=== PATIENT | male | born 1970 | race African-American/Black ===

== ENCOUNTER 2023-06-24 06:46 | Emergency (ER) | payer MEDICAID ==
[2023-06-24 07:50] LABS: BASOPHILS # (AUTO) 0.1 10^3/uL (0.0-0.1); BASOPHILS % (AUTO) 0.8 %; EOSINOPHILS % (AUTO) 0.3 %; HCT - HEMATOCRIT 42.3 % (42.0-52.0); HGB - HEMOGLOBIN 13.7 g/dL (14.0-18.0); LYMPHOCYTES # (AUTO) 1.5 10^3/uL (1.5-3.5); LYMPHOCYTES % (AUTO) 18.6 %; MEAN CORPUSCULAR HEMOGLOBIN 27.7 pg (27.0-31.0); MEAN CORPUSCULAR HGB CONC 32.4 g/dL (32.0-36.0); MEAN CORPUSCULAR VOLUME 85.6 fL (80.0-94.0); MEAN PLATELET VOLUME 9.8 fL (7.4-11.4); MONOCYTES # (AUTO) 0.7 10^3/uL (0.0-1.0); MONOCYTES % (AUTO) 8.8 %; NEUTROPHILS # (AUTO) 5.6 10^3/uL (1.5-6.6); NEUTROPHILS % (AUTO) 71.4 %; PLT - PLATELET COUNT 317 10^3/uL (130-450); RED BLOOD COUNT 4.94 10^6/uL (4.70-6.10); RED CELL DISTRIBUTION WIDTH 12.1 % (12.0-15.0); WHITE BLOOD COUNT 7.8 x10^3/uL (4.8-10.8)
--- NOTE | 2023-06-24 07:58 | XRAY Report ---
PROCEDURE: Chest 1 View X-Ray INDICATIONS: CP TECHNIQUE: One view of the chest was acquired. COMPARISON: None. FINDINGS: Surgical changes and devices: None. Lungs and pleura: No pleural effusions or pneumothorax. Lungs are clear. Mediastinum: Mediastinal contours appear normal. Heart size is normal. Bones and chest wall: No suspicious bony lesions. Overlying soft tissues appear unremarkable. IMPRESSION: No acute cardiopulmonary process. Reviewed by: Marta Mata MD on 06/24/2023 7:56 AM [facility] Approved by: Marta Mata MD on 06/24/2023 7:56 AM [facility] Station ID: [id number]
[2023-06-24] MEDS ORDERED: SODIUM CHLORIDE 0.9% 1,000 ML IV STA (08:05)
[2023-06-24 08:15] LABS: ALBUMIN 4.6 g/dL (3.2-5.5); ALBUMIN/GLOBULIN RATIO 1.5 (1.0-2.2); BILIRUBIN,TOTAL 0.8 mg/dL (0.2-1.0); CALCIUM 9.8 mg/dL (8.5-10.3); CREATININE 0.9 mg/dL (0.6-1.3); POTASSIUM 3.5 mmol/L (3.5-4.5); TOTAL PROTEIN 7.6 g/dL (6.4-8.9)
[2023-06-24 08:24] LABS: TROPONIN I HIGH SENSITIVITY 24.5 ng/L (2.3-19.7)
--- NOTE | 2023-06-24 08:25 | ED Physician Documentation ---
PD HPI CHEST PAIN - Stated complaint Stated Complaint: SOA/HIGH BP - Chief complaint Chief Complaint: Cardiac - History obtained from History obtained from: Patient - Additional information Additional information: Patient is a 53-year-old male with a history of schizophrenia, hypertension, hyperlipidemia presenting for evaluation of an episode of chest pain starting approximately 1 hour ago while he was sitting with associated diaphoresis and shortness of air. Patient reports that he has been "partying" recently and last night used cocaine, methamphetamine, cannabis, alcohol. He states he has not had any illicit substances since 4 to 6 hours prior to the onset of his chest pain. He states that he is supposed to be on psychiatric medications but is unsure of the names and has not been taking them for 2 weeks. He denies being suicidal. He states he feels he needs detox from his recent substance use. He is in the area for work. He does have his other medication such as amlodipine but has not taken it in a few days. Denies history of MD. He is unsure of the psychiatric medications he is supposed to be taking. States he has never been in detox or rehab before but feels that it would be helpful for him to go to. Denies having DTs when stopping alcohol in the past. States he has been drinking heavily for the past 4 days. Review of Systems Constitutional: denies: Fever Cardiac: reports: Chest pain / pressure Respiratory: reports: Dyspnea GI: denies: Abdominal Pain, Vomiting Neurologic: denies: Headache PD PAST MEDICAL HISTORY - Past Medical History Past Medical History: Yes Cardiovascular: Hypertension, High cholesterol - Past Surgical History Past Surgical History: No - Allergies Allergies/Adverse Reactions: Allergies Allergy/AdvReac Type Severity Reaction Status Date / Time No Known Drug Allergies Allergy Verified 06/24/23 07:27 - Social History Does the pt smoke?: Yes Smoking Status: Current every day smoker Does the pt drink ETOH?: Yes Substance Use and Type: Cocaine/Crack PD ED PE NORMAL - General General: Alert and oriented X 3, No acute distress, Well developed/nourished - HEENT HEENT: Atraumatic, Moist mucous membranes, Pharynx benign - Neck Neck: Supple, no meningeal sign - Cardiac Cardiac: Other (Tachycardic; Regular rhythm) - Respiratory Respiratory: No respiratory distress, Clear bilaterally - Abdomen Abdomen: Soft, Non tender - Derm Derm: Warm and dry - Extremities Extremities: No edema - Neuro Neuro: Normal speech Results - Vitals Vitals: Vital Signs - 24 hr 06/24/23 06/24/23 06/24/23 07:23 08:01 08:35 Temperature 36.5 C Heart Rate 123 H 104 H 96 Respiratory 20 20 18 Rate Blood Pressure 164/110 H 154/96 H 121/107 H O2 Saturation 97 100 97 06/24/23 06/24/23 06/24/23 09:58 10:00 10:38 Temperature Heart Rate 109 H 93 106 H Respiratory 20 20 22 Rate Blood Pressure 196/107 H 177/109 H 187/142 H O2 Saturation 97 95 96 06/24/23 06/24/23 11:09 11:53 Temperature Heart Rate 109 H 108 H Respiratory 18 16 Rate Blood Pressure 157/107 H 125/82 H O2 Saturation 96 99 Oxygen O2 Source Room air - EKG (time done) 0720 EKG releavant findings:: EKG personally interpreted by author of this note. Relevant findings are: Rate 113, sinus tachycardia, no STEMI, no prior for comparison - Labs Labs: Laboratory Tests 06/24/23 06/24/23 06/24/23 07:41 07:41 07:41 WBC 7.8 RBC 4.94 Hgb 13.7 L Hct 42.3 MCV 85.6 MCH 27.7 MCHC 32.4 RDW 12.1 Plt Count 317 MPV 9.8 Neut # (Auto) 5.6 Lymph # (Auto) 1.5 [place] # (Auto) 0.7 Eos # (Auto) 0.0 Baso # (Auto) 0.1 Absolute Nucleated RBC 0.00 Nucleated RBC % 0.0 D-Dimer 333.0 H Sodium 136 Potassium 3.5 Chloride 99 L Carbon Dioxide 27 Anion Gap 10.0 BUN 15 Creatinine 0.9 Estimated GFR (MDRD) 106 Glucose 112 H Calcium 9.8 Total Bilirubin 0.8 AST 64 H ALT 30 Alkaline Phosphatase 54 Troponin I High Sens 24.5 H* Total Protein 7.6 Albumin 4.6 Globulin 3.0 Albumin/Globulin Ratio 1.5 Lipase 10 L Ethyl Alcohol 06/24/23 06/24/23 07:41 09:38 WBC RBC Hgb Hct MCV MCH MCHC RDW Plt Count MPV Neut # (Auto) Lymph # (Auto) [place] # (Auto) Eos # (Auto) Baso # (Auto) Absolute Nucleated RBC Nucleated RBC % D-Dimer Sodium Potassium Chloride Carbon Dioxide Anion Gap BUN Creatinine Estimated GFR (MDRD) Glucose Calcium Total Bilirubin AST ALT Alkaline Phosphatase Troponin I High Sens 22.9 H* Total Protein Albumin Globulin Albumin/Globulin Ratio Lipase Ethyl Alcohol < 10.0 PD Medical Decision Making - ED course Complexity details: reviewed results, re-evaluated patient, d/w patient ED course: Patient is a 53-year-old male presenting for evaluation of chest pain and feeling short of air this morning in the setting of recent polysubstance abuse. Patient admits to using cocaine, methamphetamine, cannabis and alcohol last night. EKG is reviewed and nonischemic. CBC, chemistry, troponin and D-dimer were obtained and reviewed.Chest x-ray reviewed without signs of effusion or consolidation. D-dimer is elevated even with age adjustment so a CT angio was obtained which I reviewed. No pulmonary embolism but there are nodules which need monitoring which I reviewed with the patient. Repeat troponin is slightly decreased and thus I do not feel this represents acute coronary syndrome. Patient is feeling better here. He was seen by social work. Patient was given resources regarding his substance abuse. He is not suicidal or appearing acutely psychotic. Patient counseled on need for close follow-up as well as concerning symptoms to return for. 0958 - Reviewed CT results including findings of incidental nodules. Patient does smoke 2 packs a day. I explained that he needs close follow-up given his smoking history to ensure that these do not turn into cancer. Patient indicates understanding that he needs follow-up for his CT scan. Departure - Departure Disposition: 01 Home, Self Care Clinical Impression: Chest pain, Pulmonary nodule, Polysubstance abuse Condition: Stable Instructions: ED Chest Pain Atypical Unkn Cause, ED Drug Abuse General Comments: Please follow-up with your primary care provider regarding your chest pain today. I would also recommend you resume your medications as prescribed and make sure you are taking them every day. At the social welfare research worker is also given you resources regarding Your substance abuse. Please reach out to get help. [facility] [address] [place] [address] Main The [facility] offers a monitored and safe setting for individuals withdrawing from alcohol and drugs, and counseling for individuals experiencing a mental health crisis. All services are provided in a 10-bed facility where intensive medical monitoring is required along with stabilization services. The goal of these services is to assess a clients mental health and substance use disorder related needs, and assist them in accessing the services they need to recover. YOU NEED CLOSE FOLLOW UP FOR THE FOLLOWING TO MAKE SURE THESE NODULES DO NOT TURN INTO CANCER APPEARING LESIONS. Multiple scattered sub-6 mm solid pulmonary nodules. If patient is high risk for lung malignancy, recommend follow-up CT in 12 months to demonstrate stability. If patient is low risk for lung malignancy, no imaging follow-up is recommended per Fleischner guidelines. Forms: PCP List Discharge Date/Time: 06/24/23 12:29
[2023-06-24] MEDS ORDERED: iohexoL-300 100 ML VIAL IVP ONE (09:23)
--- NOTE | 2023-06-24 09:49 | CT Report ---
PROCEDURE: ANGIO CHEST W/WO INDICATIONS: CP/SOA/abnormal ddimer CONTRAST: 80ml Omni 300 TECHNIQUE: After the administration of intravenous contrast, 2 mm axial images were acquired from the pulmonary apices to the posterior costophrenic angles during the arterial phase. In addition, 1 mm lung kernel and 5 mm soft tissue kernel reconstructions were performed. 3-dimensional coronal oblique maximum int ensity projection (MIP) reformats, 8 mm axial MIP, and 5 mm coronal and sagittal MPR reformats were t hen performed through the thorax. For radiation dose reduction, the following was used: automated exp osure control, adjustment of mA and/or kV according to patient size. COMPARISON: Chest radiograph 06/24/2023 FINDINGS: Image quality: Diagnostic. Large vessels: No filling defects within the opacified pulmonary arteries, accounting for motion and contrast timing. No evidence of acute aortic syndrome or aortic aneurysm. Lungs and pleura: Bibasilar atelectasis. No pleural effusions. No pneumothorax. Scattered solid pulm onary nodules as follows: -Right upper lobe subpleural 3 mm nodule (4/116, MIP image 60) -Right lower lobe 3 mm subpleural solid pulmonary nodule (4/161, MIP image 83), possible subfissural lymph node. -Right lower lobe 5 mm subpleural solid pulmonary nodule (4/186, MIP image 94) Mediastinum: Heart size is mildly enlarged. No pericardial effusion. Coronary artery calcifications. No large vessel abnormality. No mediastinal adenopathy by size criteria. Chest wall and lower neck: Thyroid is unremarkable. No axillary or supraclavicular adenopathy by size . Bones: No acute or suspicious osseous abnormality. Mild degenerative changes of the visualized spine. Upper Abdomen: Unremarkable. IMPRESSION: No acute pulmonary embolus. Multiple scattered sub-6 mm solid pulmonary nodules. If patient is high risk for lung malignancy, rec ommend follow-up CT in 12 months to demonstrate stability. If patient is low risk for lung malignancy , no imaging follow-up is recommended per Fleischner guidelines. Reviewed by: Bell Conrad MD on 06/24/2023 9:47 AM PST Approved by: Bell Conrad MD on 06/24/2023 9:47 AM PST Station ID: [id number]
[2023-06-24 11:59] VITALS: BP 125/82; O2SAT 99
== END 2023-06-24 12:29 | disposition home or self-care (01) ==
LOC: ED 06:46
DX: R07.9 Chest pain, unspecified (principal); R06.02 Shortness of breath; F19.10 Other psychoactive substance abuse, uncomplicated; F10.10 Alcohol abuse, uncomplicated; Y90.0 Blood alcohol level of less than 20 mg/100 ml; R79.1 Abnormal coagulation profile; R79.89 Other specified abnormal findings of blood chemistry; R91.8 Other nonspecific abnormal finding of lung field; F17.200 Nicotine dependence, unspecified, uncomplicated; Z91.148 Patient's other noncompliance with medication regimen for other reason
CPT/HCPCS: 36415; 80053; 80320; 83690; 84484; 85025; 85379; 93005; 99283; 99284

== ENCOUNTER 2023-06-24 20:10 | Emergency (ER) | payer MEDICAID ==
[2023-06-24 20:55] LABS: BASOPHILS # (AUTO) 0.1 10^3/uL (0.0-0.1); BASOPHILS % (AUTO) 0.5 %; EOSINOPHILS % (AUTO) 0.3 %; HCT - HEMATOCRIT 42.2 % (42.0-52.0); HGB - HEMOGLOBIN 13.7 g/dL (14.0-18.0); LYMPHOCYTES # (AUTO) 2.1 10^3/uL (1.5-3.5); LYMPHOCYTES % (AUTO) 21.2 %; MEAN CORPUSCULAR HEMOGLOBIN 27.6 pg (27.0-31.0); MEAN CORPUSCULAR HGB CONC 32.5 g/dL (32.0-36.0); MEAN CORPUSCULAR VOLUME 85.1 fL (80.0-94.0); MEAN PLATELET VOLUME 9.6 fL (7.4-11.4); MONOCYTES # (AUTO) 0.8 10^3/uL (0.0-1.0); MONOCYTES % (AUTO) 7.6 %; NEUTROPHILS % (AUTO) 70.1 %; PLT - PLATELET COUNT 344 10^3/uL (130-450); RED BLOOD COUNT 4.96 10^6/uL (4.70-6.10); RED CELL DISTRIBUTION WIDTH 12.1 % (12.0-15.0); WHITE BLOOD COUNT 9.9 x10^3/uL (4.8-10.8)
[2023-06-24 21:10] LABS: ACETAMINOPHEN 0.1 ug/mL; ALBUMIN 4.7 g/dL (3.2-5.5); ALBUMIN/GLOBULIN RATIO 1.6 (1.0-2.2); ALKALINE PHOSPHATASE 54 IU/L (42-121); ALT ALANINE AMINOTRANSFERASE 36 IU/L (10-60); AST ASPARTATE AMINOTRANSFERASE 69 IU/L (10-42); BILIRUBIN,TOTAL 0.7 mg/dL (0.2-1.0); BUN - BLOOD UREA NITROGEN 15 mg/dL (6-20); CARBON DIOXIDE - CO2 25 mmol/L (21-32); CHLORIDE 101 mmol/L (101-111); ETOH - ETHANOL < 10.0 mg/dL; GFR - MDRD 94 (>89); GLUCOSE 99 mg/dL (74-104); LIPASE 16 U/L (11-82); POTASSIUM 3.5 mmol/L (3.5-4.5); SODIUM 138 mmol/L (135-145); TOTAL PROTEIN 7.7 g/dL (6.4-8.9)
[2023-06-24 21:17] LABS: SALICYLATE < 1.5 mg/dL
--- NOTE | 2023-06-24 21:19 | ED Physician Documentation ---
PD HPI MHE - Stated complaint Stated Complaint: SI - Chief complaint Chief Complaint: MHE - History obtained from History obtained from: Patient - Additional information Additional information: Patient was treated and released from this emergency department earlier today. At that time, he was evaluated for chest discomfort. He had an extensive workup that included CTA chest without diagnostic findings from the cardiothoracic/respiratory standpoint. ED MD note reflects that the patient had also been drinking on a heavy/regular basis up until a few days ago, and also has been using methamphetamines, cocaine, and cannabis. When patient was discharged in the emergency department this morning, plan was to go to the [facility]. Unfortunately, patient says that during intake it was de termined that his mental health issues were significant enough to lead to denial of admission to [facility] as well as recommendation that he come back to the emergency department for reevaluation. The patient tells me that, at this time, he is not having suicidal thoughts. He admits to having SI earlier today with plan (jumping off a bridge). Denies HI, AH, VH. PD PAST MEDICAL HISTORY - Past Medical History Cardiovascular: Hypertension, High cholesterol - Past Surgical History Past Surgical History: No - Present Medications Home Medications: Ambulatory Orders Medication Instructions Recorded Confirmed OLANZapine [Zyprexa] 5 mg PO BID 06/24/23 06/24/23 Sertraline [Zoloft] 50 mg PO DAILY 06/24/23 06/24/23 hydrOXYzine HCL [Hydroxyzine HCl] 50 mg PO Q4HR PRN 06/24/23 06/24/23 traZODone [Desyrel] 50 mg PO HS 06/24/23 06/24/23 - Allergies Allergies/Adverse Reactions: Allergies Allergy/AdvReac Type Severity Reaction Status Date / Time No Known Drug Allergies Allergy Verified 06/24/23 07:27 - Social History Does the pt smoke?: Yes Smoking Status: Current every day smoker Does the pt drink ETOH?: Yes PD ED PE NORMAL - Vitals Vital signs reviewed: Yes - General General: Alert and oriented X 3, No acute distress, Well developed/nourished, Other (calm, cooperative) - Neck Neck: Supple, no meningeal sign - Cardiac Cardiac: No murmur - Respiratory Respiratory: No respiratory distress, Clear bilaterally - Abdomen Abdomen: Soft, Non tender - Neuro Neuro: Alert and oriented X 3 Eye Opening: Spontaneous Motor: Obeys Commands Verbal: Oriented GCS Score: 15 PD ED PE EXPANDED - Cardiac Cardiac: Tachy, Regular Rhythm Results - Vitals Vitals: Vital Signs - 24 hr 06/24/23 06/24/23 06/24/23 20:19 22:05 23:41 Temperature 36.5 C Heart Rate 118 H 99 Respiratory 18 16 17 Rate Blood Pressure 143/105 H 138/72 H O2 Saturation 97 100 06/25/23 06/25/23 00:46 06:59 Temperature 36.7 C 37.2 C Heart Rate 78 74 Respiratory 16 16 Rate Blood Pressure 126/63 170/90 H O2 Saturation 95 99 Oxygen O2 Source Room air - Labs Labs: Laboratory Tests 06/24/23 06/24/23 06/24/23 20:45 20:48 20:48 WBC 9.9 RBC 4.96 Hgb 13.7 L Hct 42.2 MCV 85.1 MCH 27.6 MCHC 32.5 RDW 12.1 Plt Count 344 MPV 9.6 Neut # (Auto) 7.0 H Lymph # (Auto) 2.1 [place] # (Auto) 0.8 Eos # (Auto) 0.0 Baso # (Auto) 0.1 Absolute Nucleated RBC 0.00 Nucleated RBC % 0.0 Sodium 138 Potassium 3.5 Chloride 101 Carbon Dioxide 25 Anion Gap 12.0 BUN 15 Creatinine 1.0 Estimated GFR (MDRD) 94 Glucose 99 Calcium 10.0 Total Bilirubin 0.7 AST 69 H ALT 36 Alkaline Phosphatase 54 Total Protein 7.7 Albumin 4.7 Globulin 3.0 Albumin/Globulin Ratio 1.6 Lipase 16 TSH 1.44 Urine Color DARK YELLOW Urine Clarity CLEAR Urine pH 5.5 Ur Specific [place] 1.025 Urine Protein TRACE Urine Glucose (UA) NEGATIVE Urine Ketones 15 H Urine Occult Blood NEGATIVE Urine Nitrite NEGATIVE Urine Bilirubin NEGATIVE Urine Urobilinogen 0.2 (NORMAL) Ur Leukocyte Esterase NEGATIVE Ur Microscopic Review NOT INDICATED Urine Culture Comments NOT INDICATED Salicylates < 1.5 Urine Opiates Screen NEGATIVE Ur Buprenorphine Scrn NEGATIVE Ur Oxycodone Screen NEGATIVE Urine Methadone Screen NEGATIVE Acetaminophen 0.1 Ur Barbiturates Screen NEGATIVE Ur Tricyclics Screen NEGATIVE Ur Phencyclidine Scrn NEGATIVE Ur Amphetamine Screen POSITIVE H U Methamphetamines Scrn POSITIVE H U Benzodiazepines Scrn NEGATIVE Urine Cocaine Screen NEGATIVE U Cannabinoids Screen NEGATIVE Ur Drug Screen Comment CUTOFF CONC BELOW: Ethyl Alcohol < 10.0 SARS-CoV-2 (PCR) 06/24/23 23:25 WBC RBC Hgb Hct MCV MCH MCHC RDW Plt Count MPV Neut # (Auto) Lymph # (Auto) [place] # (Auto) Eos # (Auto) Baso # (Auto) Absolute Nucleated RBC Nucleated RBC % Sodium Potassium Chloride Carbon Dioxide Anion Gap BUN Creatinine Estimated GFR (MDRD) Glucose Calcium Total Bilirubin AST ALT Alkaline Phosphatase Total Protein Albumin Globulin Albumin/Globulin Ratio Lipase TSH Urine Color Urine Clarity Urine pH Ur Specific [place] Urine Protein Urine Glucose (UA) Urine Ketones Urine Occult Blood Urine Nitrite Urine Bilirubin Urine Urobilinogen Ur Leukocyte Esterase Ur Microscopic Review Urine Culture Comments Salicylates Urine Opiates Screen Ur Buprenorphine Scrn Ur Oxycodone Screen Urine Methadone Screen Acetaminophen Ur Barbiturates Screen Ur Tricyclics Screen Ur Phencyclidine Scrn Ur Amphetamine Screen U Methamphetamines Scrn U Benzodiazepines Scrn Urine Cocaine Screen U Cannabinoids Screen Ur Drug Screen Comment Ethyl Alcohol SARS-CoV-2 (PCR) NOT DETECTED PD Medical Decision Making - ED course Complexity details: reviewed old records (Reviewed ED MD note from visit earlier today), reviewed results, re-evaluated patient, considered differential, d/w patient ED course: Patient T+R from this emergency department earlier today and subsequently went to a local detox/recovery center where he was denied admission (per patient) due to concerns over mental health issues including SI. Patient denies SI at this time but admits to having the symptoms earlier today. I asked the patient if he would feel safe being discharged at this time. He replies he would not feel safe feels that he would benefit from admission to a mental health facility. Offered a telepsychiatric consult which he would like to undertake. Telepsychiatrist's recommendation is inpatient treatment and a bed is available at [facility]; they ask that patient not be sent before 3 PM due to pending bed availability. Departure - Departure Disposition: 65 Psych Hosp/Unit DC/Xfer Clinical Impression: Suicidal ideation Condition: Good Forms: PCP List
[2023-06-24 21:23] LABS: THYROID STIMULATING HORMONE 1.44 uIU/mL (0.34-5.60)
[2023-06-24 21:39] LABS: GLUCOSE, URINE (UA) NEGATIVE (NEGATIVE); KETONES,URINE (UA) 15 mg/dL (NEGATIVE); LEUKOCYTE ESTERASE, URINE NEGATIVE (NEGATIVE); NITRITE,URINE NEGATIVE (NEGATIVE); OCCULT BLOOD,URINE NEGATIVE (NEGATIVE); PH,URINE 5.5 PH (5.0-7.5); PROTEIN,URINE TRACE mg/dL (NEGATIVE); UROBILINOGEN,URINE 0.2 (NORMAL) E.U./dL (NORMAL)
[2023-06-24 21:41] LABS: CLARITY,URINE CLEAR (CLEAR)
[2023-06-24 21:48] LABS: BILIRUBIN,URINE NEGATIVE (NEGATIVE); COCAINE SCREEN URINE NEGATIVE (NEGATIVE); ICTOTEST,URINE NEGATIVE; THC CANNABINOID SCREEN, URINE NEGATIVE (NEGATIVE)
[2023-06-24 21:49] LABS: AMPHETAMINE SCREEN,URINE POSITIVE (NEGATIVE); BARBITURATE SCREEN,UR NEGATIVE (NEGATIVE); BENZODIAZEPINES SCREEN, URINE NEGATIVE (NEGATIVE); BUPRENORPHINE SCREEN, URINE NEGATIVE (NEGATIVE); METHADONE SCREEN, URINE NEGATIVE (NEGATIVE); METHAMPHETAMINES SCREEN, URINE POSITIVE (NEGATIVE); OPIATE SCREEN, URINE NEGATIVE (NEGATIVE); OXYCODONE SCREEN, URINE NEGATIVE (NEGATIVE); TRICYCLIC ANTIDEPRESSANT,URINE NEGATIVE (NEGATIVE)
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
--- NOTE | 2023-06-25 08:38 | ED Physician Documentation ---
ED Addendum - Addendum Addendum: 06/25/23 08:37 Patient care assumed at shift change. Patient was seen at the bedside this morning, drinking coffee. No complaints. Agrees with plan for transfer and has been accepted to [facility]. Transportation set up for 1230 which patient is aware of. States he has no further needs at this time. Patient is calm and cooperative. Departure - Departure Disposition: [facility] H[facility]/Unit DC/Xfer Clinical Impression: Suicidal ideation Condition: Good Forms: PCP List Discharge Date/Time: 06/25/23 13:04
[2023-06-25 13:03] VITALS: BP 150/90; O2SAT 100
== END 2023-06-25 13:04 ==
LOC: ED 20:10
DX: R45.851 Suicidal ideations (principal); R07.9 Chest pain, unspecified; R06.02 Shortness of breath; F19.10 Other psychoactive substance abuse, uncomplicated; F10.10 Alcohol abuse, uncomplicated; Y90.0 Blood alcohol level of less than 20 mg/100 ml; R79.1 Abnormal coagulation profile; R79.89 Other specified abnormal findings of blood chemistry; R91.8 Other nonspecific abnormal finding of lung field; Z91.148 Patient's other noncompliance with medication regimen for other reason; F17.200 Nicotine dependence, unspecified, uncomplicated; Z59.01 Sheltered homelessness
CPT/HCPCS: 36415; 71045; 71275; 80053; 80306; 80307; 80320; 80329; 81003; 83690; 84443; 84484; 85025; 85379; 87635; 90834; 93005; 99283; 99284; 99285; Q3014; Q9967; 81001; 87086